=== PATIENT | male | born 1975 | race Caucasian/White ===

== ENCOUNTER 2019-07-22 00:54 | Emergency (ER) | payer BC ==
[~2019-07-22] VITALS: Ht 177.8 cm; Wt 95.9 kg
[2019-07-22 04:10] VITALS: BP 145/88
== END 2019-07-22 04:10 | disposition home or self-care (01) ==
LOC: ED 00:54
DX: S62.616B Displaced fracture of proximal phalanx of right little finger, initial encounter for open fracture (principal); W23.1XXA Caught, crushed, jammed, or pinched between stationary objects, initial encounter; Y93.64 Activity, baseball; Y92.89 Other specified places as the place of occurrence of the external cause; Y99.8 Other external cause status
CPT/HCPCS: 90715; J1885; J2001; Q0162